=== PATIENT | female | born 1995 | race Caucasian/White ===

== ENCOUNTER → 2018-05-25 | Outpatient (CLI) | payer BC ==
[~2018-05-25] MED LIST: ALBU8.5H8 IH; DICL100T PO; DILT120T4 PO
== END | disposition home or self-care (01) ==
LOC: STAR 14:40
PROVIDERS: ATTEND Orthopaedic Surgery
DX: Z02.9 Encounter for administrative examinations, unspecified (principal)

== ENCOUNTER 2018-05-30 05:30 | Day surgery (SDC) | payer BC ==
[~2018-05-30] VITALS: Ht 167.6 cm; Wt 86.2 kg
[2018-05-30] MEDS ORDERED: LACTATED RINGERS 1,000 ML IV SCH (06:01)
[2018-05-30 06:03] VITALS: BP 121/87
[2018-05-30] MEDS ORDERED: FENTANYL PF 250 MCG/5ML ONE (06:15)
[2018-05-30] MEDS ORDERED: MIDAZOLAM 1 MG/ML, 2ML ONE (06:15)
[2018-05-30 06:25] LABS: HCG UR SG 1.026 (1.003-1.030)
[2018-05-30] MEDS ORDERED: ONDANSETRON 2MG/ML, 2ML ONE (06:26)
[2018-05-30] MEDS ORDERED: NEOSTIGMINE 1 MG/ML, 10ML ONE (06:26)
[2018-05-30] MEDS ORDERED: PROPOFOL 10 MG/ML, 20ML ONE (06:26)
[2018-05-30] MEDS ORDERED: ROPIvacaine/PF 0.5%, 30 ML ONE ×2 (06:26→06:34)
[2018-05-30] MEDS ORDERED: DEXAMETHASONE 4 MG/ML, 1ML ONE (06:26)
[2018-05-30] MEDS ORDERED: CEFAZOLIN 1,000 MG ONE (06:26)
[2018-05-30] MEDS ORDERED: GLYCOPYRROLATE 0.2MG/1ML, 5ML ONE (06:26)
[2018-05-30] MEDS ORDERED: SUCCINYLCHOLINE 20 MG/ML, 10ML ONE (06:26)
[2018-05-30] MEDS ORDERED: ROCURONIUM 10MG/ML,5ML ONE (06:26)
[2018-05-30] MEDS ORDERED: ACETAMINOPHEN 500 MG TABLET PO ONE (06:30)
[2018-05-30] MEDS ORDERED: GABAPENTIN 300 MG CAPSULE PO ONE (06:30)
[2018-05-30] MEDS ORDERED: EPINEPHRINE TOPICAL SOLN 1 MG/ML, 30ML ONE (06:34)
[2018-05-30] MEDS ORDERED: MORPHINE SULFATE 4 MG/ML, 1ML IVPush PRN (07:00)
[2018-05-30] MEDS ORDERED: ONDANSETRON 2MG/ML, 2ML IV PRN (07:00)
[2018-05-30] MEDS ORDERED: hydrALAzine 20 MG/ML, 1ML IV PRN (07:00)
[2018-05-30] MEDS ORDERED: OXYcodone 5 MG/5 ML ORAL.SOL UDC PO PRN (07:00)
[2018-05-30] MEDS ORDERED: FENTANYL PF 100 MCG/2ML IV PRN (07:00)
[2018-05-30] MEDS ORDERED: MEPERIDINE/PF 25MG/0.5ML IVPush PRN (07:00)
[2018-05-30] MEDS ORDERED: PROMETHAZINE 25 MG/ML, 1ML IM PRN ×2 (07:00)
[2018-05-30] MEDS ORDERED: LABETALOL 5MG/ML, 20ML IV PRN (07:00)
[2018-05-30] MEDS ORDERED: PROMETHAZINE 12.5 MG SUPP PR PRN (07:00)
[2018-05-30] MEDS ORDERED: ONDANSETRON ODT 8 MG PO PRN (07:00)
[2018-05-30] MEDS ORDERED: PROMETHAZINE 25 MG SUPP PR PRN (07:00)
[2018-05-30] MEDS ORDERED: HALOPERIDOL 5 MG/ML IV PRN (07:00)
[2018-05-30] MEDS ORDERED: ALBUTEROL SULFATE 2.5 MG/3 ML NPPB PRN (07:00)
[2018-05-30] MEDS ORDERED: HYDROmorphone 2 MG/ML, 1ML ONE (09:01)
[2018-05-30] MEDS ORDERED: PROMETHAZINE 25 MG/ML, 1ML ONE (09:01)
[2018-05-30] MEDS ORDERED: OXYcodone 5 MG/5 ML ORAL.SOL UDC ONE (09:02)
[2018-05-30] MEDS: PROMETHAZINE 25 MG/ML, 1ML IV PRN ×2 (09:05→09:36)
[2018-05-30] MEDS: HYDROmorphone 2 MG/ML, 1ML IVPush PRN ×4 (09:08→09:42)
[2018-05-30] MEDS ORDERED: morphine SULFATE 10 MG/ML, 1ML ONE (10:25)
[2018-05-30] MEDS ORDERED: KETOROLAC 30 MG/1 ML ONE (10:26)
[2018-05-30] MEDS ORDERED: KETOROLAC 30 MG/1 ML IVPush SCH (10:30)
[2018-05-30] MEDS: morphine SULFATE 10 MG/ML, 1ML IVPush PRN ×2 (10:31→12:25)
[2018-05-30] MEDS: OXYcodone/APAP 5/325MG TABLET PO PRN ×2 (12:50→16:56)
[2018-05-30] MEDS ORDERED: SODIUM CHLORIDE 0.9%, 500ML IVBOLUS ONE (17:00)
== END 2018-05-30 17:25 | disposition home or self-care (01) ==
LOC: OUT 05:30
PROVIDERS: ATTEND Orthopaedic Surgery
DX: S73.191A Other sprain of right hip, initial encounter (principal); M65.861 Other synovitis and tenosynovitis, right lower leg; M21.851 Other specified acquired deformities of right thigh; J45.909 Unspecified asthma, uncomplicated; X58.XXXA Exposure to other specified factors, initial encounter; Y93.89 Activity, other specified; Y92.89 Other specified places as the place of occurrence of the external cause; Y99.8 Other external cause status; Z88.1 Allergy status to other antibiotic agents; Z88.5 Allergy status to narcotic agent; Z88.8 Allergy status to other drugs, medicaments and biological substances; Z79.899 Other long term (current) drug therapy
CPT/HCPCS: 29914; 29916; 64445; 64447; 73502; 76001; 81025; C1713; J0690; J1100; J1170; J1885; J2250; J2270; J2405; J2550; J2704; J2710; J2795; J3010; J3490; J7120; J0330